=== PATIENT | male | born 1970 | race African-American/Black ===

== ENCOUNTER 2017-07-20 09:37 | Emergency (ER) | payer MEDICAID, OTHER ==
[~2017-07-20] VITALS: Ht 175.3 cm; Wt 82.0 kg
[~2017-07-20 09:37] MED LIST: AMLO10TA80 PO; ASPI-1158 PO; GABA-290 PO; HYDR-4009 PO; LEVVL SQ; PROM-177 PO; PROT40 PO; TAMS0.4C31 PO; ZOLP10TA2 PO
[2017-07-20] MEDS ORDERED: ONDANSETRON HCL 4MG/2ML VIAL IV STA (12:02)
[2017-07-20] MEDS ORDERED: SODIUM CHLORIDE 0.9% 1,000 ML IV ONE (12:02)
[2017-07-20] MEDS ORDERED: KETOROLAC 30MG/ML VIAL IV STA (12:02)
[2017-07-20 13:26] LABS: BASOPHILS % 0.6 % (0.0-2.0); HEMATOCRIT. 38.3 % (42.0-52.0); HEMOGLOBIN. 13.1 g/dL (14.0-18.0); LYMPHOCYTES % 8.9 % (20.0-50.0); MEAN CORPUSCULAR HEMOGLOBIN 28.5 pg (28.0-32.0); MEAN CORPUSCULAR VOLUME 83.5 fL (80.0-94.0); MEAN PLATELET VOLUME 8.5 fl (7.4-10.4); MONOCYTES % 12.7 % (2.0-8.0); NEUTROPHILS % 77.8 % (40.0-76.0); PLATELET 151 x1000/uL (130-400); RED BLOOD CELL COUNT 4.59 mill/uL (4.7-6.1); RED CELL DISTRIBUTION WIDTH 14.7 % (11.6-14.6)
[2017-07-20 13:37] LABS: CHLORIDE 104 mEq/L (98-107)
[2017-07-20] MEDS ORDERED: METOCLOPRAMIDE HCL 10MG/2ML VIAL IV ONE (15:15)
[2017-07-20] MEDS ORDERED: TRAMADOL 50MG TABLET PO ONE (15:15)
[2017-07-20 15:34] LABS: CLARITY URINE CLOUDY (CLEAR); COLOR URINE YELLOW (YELLOW); KETONES URINE TRACE (NEGATIVE); LEUKOCYTE ESTERASE URINE NEGATIVE (NEGATIVE); NITRITE URINE NEGATIVE (NEGATIVE); OCCULT BLOOD URINE 2+ (NEGATIVE); PROTEIN URINE 1+ (NEGATIVE); SPECIFIC GRAVITY URINE 1.015 (1.005-1.030)
[2017-07-20 19:09] VITALS: BP 141/88
== END 2017-07-20 20:09 | disposition left against medical advice (07) ==
LOC: ER 10:39
DX: R10.31 Right lower quadrant pain (principal); R39.15 Urgency of urination; E11.9 Type 2 diabetes mellitus without complications; E78.00 Pure hypercholesterolemia, unspecified; I10 Essential (primary) hypertension
CPT/HCPCS: 36415; 74176; 80053; 81003; 82962; 85025; 96361; 96374; 96375; 99285; J1885; J2405; J2765; J7030